=== PATIENT | female | born 1940 | race Caucasian/White ===

== ENCOUNTER → 2016-05-29 | Outpatient (CLI) | payer OTHER ==
[~2016-05-29] MED LIST: ASPI81TA27 PO; ATEN50TA PO; CLOP75TA41 PO; LOSA25TA9 PO; OMEP20CA5 PO; SERT25TA84 OR; SIMV-8 PO
[2016-05-29 09:04] LABS: Cholesterol 169 mg/dL (<200); HDL Cholesterol 45 mg/dL (40-59); LDL Cholesterol 89 mg/dL (<100); Triglycerides 237 mg/dL (<150)
== END | disposition home or self-care (01) ==
LOC: LAB 08:28
PROVIDERS: ATTEND Family Medicine
DX: I10 Essential (primary) hypertension (principal); R73.03 Prediabetes
CPT/HCPCS: 36415; 80061; 83036

== ENCOUNTER 2016-06-09 15:27 | Emergency (ER) | payer OTHER ==
[~2016-06-09] VITALS: Ht 154.9 cm; Wt 70.8 kg
[2016-06-09] MEDS ORDERED: ACETAMINOPHEN 325 MG TAB PO ONE (17:45)
[2016-06-09 17:46] LABS: Basophils # (auto) 0.1 uL; Basophils % (auto) 0.5 % (0.0-2.0); Eosinophils # (auto) 0 uL; Hematocrit 38.5 % (36.0-46.0); Hemoglobin 12.1 g/dL (12.2-16.2); Lymphocytes # (auto) 0.4 uL; Lymphocytes % (auto) 3.1 % (10.0-50.0); Mean Corpuscular Hemoglobin 28.1 pg (28.0-32.0); Mean Corpuscular Hgb Conc. 31.5 g/dL (32.0-36.0); Mean Corpuscular Volume 89.2 fL (80.0-100.0); Mean Platelet Volume 10.1 fL (7.4-10.4); Monocytes # (auto) 0.9 uL; Monocytes % (auto) 6.3 % (0.0-12.0); Neutrophils # (auto) 12.5 uL; Neutrophils % (auto) 90.1 % (37.0-80.0); Platelet Count (auto) 333 10^3/uL (140-450); Red Cell Distribution Width 15.3 % (11.6-16.0); White Blood Cell 13.8 10^3/uL (4.4-10.8)
[2016-06-09 19:11] LABS: Albumin 2.5 g/dL (3.4-5.0); Anion Gap 10 (5-15); Aspartate Aminotransferase 14 U/L (15-37); BUN/Creatinine Ratio 20.2; Blood Urea Nitrogen 17 mg/dL (7-18); Calcium 8.9 mg/dL (8.5-10.1); Carbon Dioxide 28 mmol/L (21-32); Chloride 100 mmol/L (98-107); GFR African American 85 mL/min; GFR Non-African American 70 mL/min; Glucose 220 mg/dL (74-106); Potassium 3.6 mmol/L (3.5-5.1); Sodium 138 mmol/L (136-145)
[2016-06-09 19:16] LABS: Alkaline Phosphatase 87 U/L (45-117); Bilirubin, Total 0.7 mg/dL (0.2-1.0); Total Protein 7.6 g/dL (6.4-8.2)
[2016-06-09] MEDS ORDERED: LIDOCAINE W/ EPINEPHRINE 1% 20ML VIAL ONE (20:16)
[2016-06-09] MEDS ORDERED: LIDOCAINE 1% HCL (LOCAL ANESTH.) INJ 20ML MDV ONE (20:20)
[2016-06-09 20:30] VITALS: BP 137/87
[2016-06-09] MEDS ORDERED: OXYCODONE W/ ACETAMINOPHEN 5/325MG TABLET ONE (20:49)
[2016-06-09] MEDS ORDERED: OXYCODONE W/ ACETAMINOPHEN 5/325MG TABLET PO ONE (21:00)
[2016-06-09] MEDS ORDERED: cefTRIAXone SOD 1,000 MG VL IM ONE (21:00)
== END 2016-06-09 21:30 | disposition home or self-care (01) ==
LOC: ER 15:27
DX: S52.502A Unspecified fracture of the lower end of left radius, initial encounter for closed fracture (principal); S01.81XA Laceration without foreign body of other part of head, initial encounter; K21.9 Gastro-esophageal reflux disease without esophagitis; I25.10 Atherosclerotic heart disease of native coronary artery without angina pectoris; I10 Essential (primary) hypertension; E78.5 Hyperlipidemia, unspecified; I25.2 Old myocardial infarction; R51 Headache; W07.XXXA Fall from chair, initial encounter; Y93.89 Activity, other specified; Y99.8 Other external cause status; Y92.098 Other place in other non-institutional residence as the place of occurrence of the external cause; Z88.1 Allergy status to other antibiotic agents; Z88.6 Allergy status to analgesic agent; Z79.82 Long term (current) use of aspirin
CPT/HCPCS: 12013; 29125; 36415; 70450; 70486; 72125; 73090; 73562; 80053; 84484; 85025; 96372; J2001

== ENCOUNTER → 2016-06-17 | Outpatient (CLI) | payer OTHER ==
[2016-06-17 09:05] LABS: Basophils # (auto) 0 uL; Basophils % (auto) 0.8 % (0.0-2.0); Eosinophils # (auto) 0.2 uL; Eosinophils % (auto) 3.1 % (0.0-7.0); Hematocrit 45.9 % (36.0-46.0); Hemoglobin 15.5 g/dL (12.2-16.2); Lymphocytes # (auto) 1.9 uL; Mean Corpuscular Hgb Conc. 33.7 g/dL (32.0-36.0); Mean Corpuscular Volume 92.1 fL (80.0-100.0); Mean Platelet Volume 7.7 fL (7.4-10.4); Monocytes # (auto) 0.6 uL; Monocytes % (auto) 10.5 % (0.0-12.0); Neutrophils # (auto) 3.2 uL; Neutrophils % (auto) 53.6 % (37.0-80.0); Platelet Count (auto) 338 10^3/uL (140-450); Red Cell Distribution Width 13.6 % (11.6-16.0)
[2016-06-17 09:11] LABS: Urine Bilirubin Negative (Negative); Urine Blood Negative /uL (Negative); Urine Color Yellow (Yellow); Urine Glucose Normal (Normal); Urine Ketone Negative (Negative); Urine Mucus FEW (None Seen); Urine Nitrite Negative (Negative); Urine RBC 3 /hpf (0 - 4); Urine Squamous Epithelial Cell MOD /hpf (<5); Urine pH 5.5 (5.0-8.0)
[2016-06-17 09:34] LABS: Albumin 3.6 g/dL (3.4-5.0); BUN/Creatinine Ratio 21.2; Bilirubin, Total 0.5 mg/dL (0.2-1.0); Calcium 8.8 mg/dL (8.5-10.1); Potassium 3.6 mmol/L (3.5-5.1); Total Protein 7.8 g/dL (6.4-8.2)
[2016-06-17 09:49] LABS: INR 0.97 (0.9-1.15); Partial Thromboplastin Time 24.5 sec (22.64-33.71); Prothrombin Time 10.5 sec (9.37-12.3)
== END | disposition home or self-care (01) ==
LOC: LAB 08:18
PROVIDERS: ATTEND Orthopaedic Surgery
DX: Z79.01 Long term (current) use of anticoagulants (principal); S52.532A Colles' fracture of left radius, initial encounter for closed fracture
CPT/HCPCS: 36415; 80053; 81001; 85025; 85610; 85730

== ENCOUNTER → 2017-01-01 | Outpatient (CLI) | payer OTHER ==
[~2017-01-01] MED LIST changes: -OMEP20CA5 PO; +OMEP20CA74 PO
[2017-01-01 08:37] LABS: Basophils # (auto) 0.1 uL; Eosinophils # (auto) 0.1 uL; Eosinophils % (auto) 2.3 % (0.0-7.0); Hematocrit 45.4 % (36.0-46.0); Hemoglobin 15.3 g/dL (12.2-16.2); Lymphocytes # (auto) 2.1 uL; Lymphocytes % (auto) 35.3 % (10.0-50.0); Mean Corpuscular Hemoglobin 31.4 pg (28.0-32.0); Mean Corpuscular Hgb Conc. 33.6 g/dL (32.0-36.0); Mean Corpuscular Volume 93.5 fL (80.0-100.0); Monocytes # (auto) 0.6 uL; Monocytes % (auto) 10.9 % (0.0-12.0); Neutrophils # (auto) 2.9 uL; Neutrophils % (auto) 50.5 % (37.0-80.0); Nucleated Red Blood Cells % 0.1 %; Platelet Count (auto) 275 10^3/uL (140-450); Red Cell Distribution Width 13.5 % (11.8-14.3); White Blood Cell 5.8 10^3/uL (4.4-10.8)
[2017-01-01 08:47] LABS: Urine Bilirubin Negative (Negative); Urine Blood Negative /uL (Negative); Urine Color PINK (Yellow); Urine Glucose Normal (Normal); Urine Ketone Negative (Negative); Urine Mucus FEW (None Seen); Urine Nitrite Negative (Negative); Urine RBC 2 /hpf (0 - 4); Urine Squamous Epithelial Cell MOD /hpf (<5); Urine Urobilinogen Normal (Negative); Urine pH 5.5 (5.0-8.0)
[2017-01-01 09:04] LABS: Albumin 3.8 g/dL (3.4-5.0); BUN/Creatinine Ratio 29.7; Bilirubin, Total 0.5 mg/dL (0.2-1.0); Potassium 3.4 mmol/L (3.5-5.1); Total Protein 7.5 g/dL (6.4-8.2)
[2017-01-01 09:21] LABS: Temperature: 24.3 C (20.0-25.0)
== END | disposition home or self-care (01) ==
LOC: LAB 08:18
PROVIDERS: ATTEND Family Medicine
DX: E11.22 Type 2 diabetes mellitus with diabetic chronic kidney disease (principal); E78.2 Mixed hyperlipidemia; Z79.899 Other long term (current) drug therapy
CPT/HCPCS: 36415; 80053; 80061; 81001; 82306; 82607; 82746; 83036; 84443; 85025

== ENCOUNTER → 2017-07-09 | Outpatient (CLI) | payer OTHER | END | disposition home or self-care (01) | LOC: LAB 07:12 | PROVIDERS: ATTEND Family Medicine | DX: I10 Essential (primary) hypertension (principal); E11.9 Type 2 diabetes mellitus without complications; E78.5 Hyperlipidemia, unspecified; Z79.899 Other long term (current) drug therapy; Z79.82 Long term (current) use of aspirin | CPT/HCPCS: 36415; 82043; 83036 ==

== ENCOUNTER → 2017-10-21 | Outpatient (CLI) | payer OTHER ==
[2017-10-21 09:34] LABS: Basophils # (auto) 0 uL; Eosinophils # (auto) 0.2 uL; Hematocrit 44.3 % (36.0-46.0); Hemoglobin 15.2 g/dL (12.2-16.2); Lymphocytes # (auto) 1.5 uL; Lymphocytes % (auto) 31.1 % (10.0-50.0); Mean Corpuscular Hemoglobin 32.1 pg (28.0-32.0); Mean Corpuscular Hgb Conc. 34.4 g/dL (32.0-36.0); Mean Corpuscular Volume 93.5 fL (80.0-100.0); Monocytes # (auto) 0.5 uL; Monocytes % (auto) 9.7 % (0.0-12.0); Neutrophils # (auto) 2.7 uL; Neutrophils % (auto) 54.2 % (37.0-80.0); Nucleated Red Blood Cells % 0.1 %; Platelet Count (auto) 233 10^3/uL (140-450); Red Blood Cells 4.74 10^6/uL (4.0-5.20); Red Cell Distribution Width 13.6 % (11.8-14.3); White Blood Cell 4.9 10^3/uL (4.4-10.8)
[2017-10-21 09:48] LABS: Urine Bacteria FEW /hpf (None Seen); Urine Blood Negative /uL (Negative); Urine Mucus FEW (None Seen); Urine Specific Gravity 1.021 (1.001-1.035); Urine WBC 9 /hpf (0 - 5)
[2017-10-21 10:13] LABS: Albumin 3.6 g/dL (3.4-5.0); BUN/Creatinine Ratio 21.9; Bilirubin, Total 0.6 mg/dL (0.2-1.0); Calcium 8.9 mg/dL (8.5-10.1); Total Protein 7.2 g/dL (6.4-8.2)
== END | disposition home or self-care (01) ==
LOC: LAB 09:15
PROVIDERS: ATTEND Family Medicine
DX: E11.8 Type 2 diabetes mellitus with unspecified complications (principal); Z90.710 Acquired absence of both cervix and uterus; Z88.6 Allergy status to analgesic agent; Z88.8 Allergy status to other drugs, medicaments and biological substances; Z88.1 Allergy status to other antibiotic agents
CPT/HCPCS: 36415; 80053; 80061; 81001; 82043; 82306; 85025

== ENCOUNTER → 2018-03-16 | Outpatient (CLI) | payer OTHER, MEDICARE ==
[~2018-03-16] MED LIST changes: +LOSA25TA40 PO; -LOSA25TA9 PO
[2018-03-16 10:39] LABS: Basophils # (auto) 0 uL; Basophils % (auto) 0.8 % (0.0-2.0); Eosinophils # (auto) 0.1 uL; Eosinophils % (auto) 1.8 % (0.0-7.0); Hematocrit 45.6 % (36.0-46.0); Hemoglobin 15.4 g/dL (12.2-16.2); Lymphocytes # (auto) 1.1 uL; Lymphocytes % (auto) 26.3 % (10.0-50.0); Mean Corpuscular Hemoglobin 31.7 pg (28.0-32.0); Mean Corpuscular Hgb Conc. 33.9 g/dL (32.0-36.0); Mean Corpuscular Volume 93.7 fL (80.0-100.0); Monocytes # (auto) 0.4 uL; Monocytes % (auto) 9.1 % (0.0-12.0); Neutrophils # (auto) 2.7 uL; Nucleated Red Blood Cells % 0.1 %; Platelet Count (auto) 247 10^3/uL (140-450); Red Blood Cells 4.87 10^6/uL (4.0-5.20); Red Cell Distribution Width 13.3 % (11.8-14.3); White Blood Cell 4.3 10^3/uL (4.4-10.8)
[2018-03-16 10:47] LABS: Urine Bacteria FEW /hpf (None Seen); Urine Blood Negative /uL (Negative); Urine Mucus FEW (None Seen); Urine Specific Gravity 1.025 (1.001-1.035); Urine WBC 2 /hpf (0 - 5)
[2018-03-16 10:52] LABS: Potassium 4.1 mmol/L (3.5-5.1)
[2018-03-16 11:03] LABS: Albumin 3.5 g/dL (3.4-5.0); BUN/Creatinine Ratio 24.2; Bilirubin, Total 0.6 mg/dL (0.2-1.0); Calcium 9.1 mg/dL (8.5-10.1); Total Protein 7.2 g/dL (6.4-8.2)
== END | disposition home or self-care (01) ==
LOC: LAB 09:21
PROVIDERS: ATTEND Nurse Practitioner
DX: E11.29 Type 2 diabetes mellitus with other diabetic kidney complication (principal); E78.00 Pure hypercholesterolemia, unspecified; K21.9 Gastro-esophageal reflux disease without esophagitis; Z79.899 Other long term (current) drug therapy
CPT/HCPCS: 36415; 80053; 80061; 81001; 82043; 82306; 83036; 85025

== ENCOUNTER → 2018-06-15 | Outpatient (CLI) | payer OTHER, MEDICARE ==
[2018-06-15 10:31] LABS: Basophils # (auto) 0 uL; Basophils % (auto) 0.2 % (0.0-2.0); Eosinophils # (auto) 0.1 uL; Eosinophils % (auto) 2.6 % (0.0-7.0); Hematocrit 42.9 % (36.0-46.0); Hemoglobin 14.4 g/dL (12.2-16.2); Lymphocytes % (auto) 27.1 % (10.0-50.0); Mean Corpuscular Hemoglobin 31.4 pg (28.0-32.0); Mean Corpuscular Hgb Conc. 33.7 g/dL (32.0-36.0); Mean Corpuscular Volume 93.3 fL (80.0-100.0); Monocytes # (auto) 0.3 uL; Monocytes % (auto) 9.6 % (0.0-12.0); Neutrophils # (auto) 2.2 uL; Neutrophils % (auto) 60.5 % (37.0-80.0); Nucleated Red Blood Cells % 0.1 %; Platelet Count (auto) 235 10^3/uL (140-450); Red Cell Distribution Width 13.7 % (11.8-14.3); White Blood Cell 3.6 10^3/uL (4.4-10.8)
[2018-06-15 10:36] LABS: Calcium 8.6 mg/dL (8.5-10.1); Potassium 3.4 mmol/L (3.5-5.1)
[2018-06-15 10:45] LABS: Albumin 3.7 g/dL (3.4-5.0); BUN/Creatinine Ratio 25.3; Bilirubin, Total 0.7 mg/dL (0.2-1.0)
[2018-06-15 10:53] LABS: Urine Bacteria NONE SEEN /hpf (None Seen); Urine Blood Negative /uL (Negative); Urine Specific Gravity 1.022 (1.001-1.035); Urine WBC 6 /hpf (0 - 5)
[2018-06-15 10:59] LABS: Folate (Folic Acid) 20.88 ng/mL (5.38-24)
== END | disposition home or self-care (01) ==
LOC: LAB 08:40
PROVIDERS: ATTEND Nurse Practitioner
DX: E78.5 Hyperlipidemia, unspecified (principal); E11.29 Type 2 diabetes mellitus with other diabetic kidney complication
CPT/HCPCS: 36415; 80053; 80061; 81001; 82043; 82607; 82746; 83036; 84443; 84550; 85025

== ENCOUNTER → 2018-10-19 | Outpatient (CLI) | payer MEDICARE, OTHER ==
[~2018-10-19] MED LIST changes: +ASPI-404 PO; -ASPI81TA27 PO; +LOSA25TA38 PO; -LOSA25TA40 PO
[2018-10-19 10:30] LABS: Basophils # (auto) 0 uL; Eosinophils # (auto) 0.2 uL; Eosinophils % (auto) 4.6 % (0.0-7.0); Hematocrit 42.9 % (36.0-46.0); Hemoglobin 14.4 g/dL (12.2-16.2); Lymphocytes # (auto) 1.1 uL; Lymphocytes % (auto) 26.9 % (10.0-50.0); Mean Corpuscular Hemoglobin 31.2 pg (28.0-32.0); Mean Corpuscular Hgb Conc. 33.6 g/dL (32.0-36.0); Monocytes # (auto) 0.4 uL; Monocytes % (auto) 9.6 % (0.0-12.0); Neutrophils # (auto) 2.3 uL; Neutrophils % (auto) 57.9 % (37.0-80.0); Platelet Count (auto) 259 10^3/uL (140-450); Red Blood Cells 4.62 10^6/uL (4.0-5.20); Red Cell Distribution Width 13.5 % (11.8-14.3)
[2018-10-19 10:52] LABS: Urine Bacteria NONE SEEN /hpf (None Seen); Urine Blood Negative /uL (Negative); Urine Specific Gravity 1.025 (1.001-1.035); Urine WBC 30 /hpf (0 - 5)
[2018-10-19 11:09] LABS: Albumin 3.5 g/dL (3.4-5.0); BUN/Creatinine Ratio 21.9; Bilirubin, Total 0.6 mg/dL (0.2-1.0); Total Protein 7.2 g/dL (6.4-8.2)
== END | disposition home or self-care (01) ==
LOC: LAB 09:58
PROVIDERS: ATTEND Nurse Practitioner
DX: E78.5 Hyperlipidemia, unspecified (principal); E11.9 Type 2 diabetes mellitus without complications
CPT/HCPCS: 36415; 80053; 80061; 81001; 82306; 83036; 84443; 85025

== ENCOUNTER → 2018-10-27 | Outpatient (CLI) | payer OTHER | END | disposition home or self-care (01) | LOC: LAB 16:27 | PROVIDERS: ATTEND Nurse Practitioner | DX: E78.5 Hyperlipidemia, unspecified (principal); E11.9 Type 2 diabetes mellitus without complications | CPT/HCPCS: 82270 ==

== ENCOUNTER → 2019-04-29 | Outpatient (CLI) | payer OTHER ==
[2019-04-29 10:08] LABS: Basophils # (auto) 0 uL; Eosinophils # (auto) 0.1 uL; Eosinophils % (auto) 2.8 % (0.0-7.0); Hematocrit 40.4 % (36.0-46.0); Hemoglobin 13.8 g/dL (12.2-16.2); Lymphocytes # (auto) 1.2 uL; Lymphocytes % (auto) 30.7 % (10.0-50.0); Mean Corpuscular Hgb Conc. 34.3 g/dL (32.0-36.0); Mean Corpuscular Volume 93.3 fL (80.0-100.0); Monocytes # (auto) 0.4 uL; Monocytes % (auto) 10.4 % (0.0-12.0); Neutrophils # (auto) 2.2 uL; Neutrophils % (auto) 55.1 % (37.0-80.0); Nucleated Red Blood Cells % 0.1 %; Platelet Count (auto) 251 10^3/uL (140-450); Red Blood Cells 4.33 10^6/uL (4.0-5.20); Red Cell Distribution Width 13.6 % (11.8-14.3)
[2019-04-29 10:15] LABS: Urine Bacteria NONE SEEN /hpf (None Seen); Urine Blood Negative /uL (Negative); Urine Mucus FEW (None Seen); Urine Specific Gravity 1.028 (1.001-1.035); Urine WBC 48 /hpf (0 - 5)
[2019-04-29 10:39] LABS: Albumin 3.2 g/dL (3.4-5.0); Potassium 3.9 mmol/L (3.5-5.1)
[2019-04-29 10:45] LABS: BUN/Creatinine Ratio 25.8; Bilirubin, Total 0.5 mg/dL (0.2-1.0); Calcium 8.8 mg/dL (8.5-10.1); Total Protein 6.7 g/dL (6.4-8.2)
== END | disposition home or self-care (01) ==
LOC: LAB 09:32
PROVIDERS: ATTEND Nurse Practitioner
DX: E78.5 Hyperlipidemia, unspecified (principal); E11.22 Type 2 diabetes mellitus with diabetic chronic kidney disease; N18.3 Chronic kidney disease, stage 3 (moderate)
CPT/HCPCS: 36415; 80053; 80061; 81001; 82043; 83036; 84443; 85025

== ENCOUNTER 2019-11-29 08:50 | Day surgery (SDC) | payer OTHER ==
[2019-11-24 12:23] LABS: Basophils # (auto) 0 10 ^3/uL (0-0.2); Basophils % (auto) 0.9 % (0.0-2.0); Eosinophils # (auto) 0.1 10 ^3/uL (0-0.8); Eosinophils % (auto) 2.6 % (0.0-7.0); Hematocrit 41.6 % (36.0-46.0); Hemoglobin 13.8 g/dL (12.2-16.2); Lymphocytes # (auto) 1.5 10 ^3/uL (0.4-5.4); Lymphocytes % (auto) 30.9 % (10.0-50.0); Mean Corpuscular Hemoglobin 30.9 pg (28.0-32.0); Mean Corpuscular Hgb Conc. 33.2 g/dL (32.0-36.0); Mean Corpuscular Volume 93.2 fL (80.0-100.0); Monocytes # (auto) 0.5 10 ^3/uL (0-1.3); Monocytes % (auto) 9.7 % (0.0-12.0); Neutrophils # (auto) 2.7 10 ^3/uL (1.6-8.6); Neutrophils % (auto) 55.9 % (37.0-80.0); Platelet Count (auto) 278 10^3/uL (140-450); Red Blood Cells 4.47 10^6/uL (4.0-5.20); Red Cell Distribution Width 13.1 % (11.8-14.3); White Blood Cell 4.9 10^3/uL (4.4-10.8)
[2019-11-24 12:44] LABS: INR 0.97 (0.9-1.15); Partial Thromboplastin Time 24.7 sec (23.0-31.2)
[~2019-11-29] VITALS: Ht 152.4 cm; Wt 67.1 kg
[~2019-11-29 08:50] MED LIST changes: -ASPI-404 PO; +ASPI-543 PO; +FLUMAZENIL 0.1 MG/ML INJ 10ML MDV IV ONE; +FURO20TA3 PO; +HYDR12.56 PO; +LIDOCAINE VISCOUS 2% 15ML UD ONE; -LOSA25TA38 PO; +METF-370 PO; +NALOXONE HCL 0.4 MG/ML VIAL ONE; -SERT25TA84 OR; +SODIUM CHLORIDE LOCK 10 ML ONE; +diphenhdrAMINE HCL 50 MG/1 ML VL ONE
[2019-11-29] MEDS: fentaNYL CITRATE 100 MCG/2 ML VL ONE ×2 (09:50→09:52)
[2019-11-29] MEDS: MIDAZOLAM HCL 5 MG/ML-1ML VIAL ONE ×2 (09:50→09:52)
[2019-11-29 10:50] VITALS: BP 116/60
== END 2019-11-29 11:05 | disposition home or self-care (01) ==
LOC: SUR 08:50
PROVIDERS: ATTEND Internal Medicine Gastroenterology
DX: K21.9 Gastro-esophageal reflux disease without esophagitis (principal); K29.50 Unspecified chronic gastritis without bleeding; K44.9 Diaphragmatic hernia without obstruction or gangrene; K31.89 Other diseases of stomach and duodenum; E11.9 Type 2 diabetes mellitus without complications; E66.9 Obesity, unspecified; F32.9 Major depressive disorder, single episode, unspecified; Z79.899 Other long term (current) drug therapy; Z79.84 Long term (current) use of oral hypoglycemic drugs; Z68.28 Body mass index [BMI] 28.0-28.9, adult; Z20.828 Contact with and (suspected) exposure to other viral communicable diseases; Z88.1 Allergy status to other antibiotic agents; Z88.8 Allergy status to other drugs, medicaments and biological substances; Z90.710 Acquired absence of both cervix and uterus; Z87.891 Personal history of nicotine dependence
CPT/HCPCS: 36415; 43239; 82962; 85025; 85610; 85730; 88305; 88342; J2250; J2310; J3010; J7030; U0003

== ENCOUNTER → 2020-01-20 | Day surgery (SDC) | payer OTHER ==
[2020-01-16 12:29] LABS: Basophils # (auto) 0 10 ^3/uL (0-0.2); Basophils % (auto) 0.9 % (0.0-2.0); Eosinophils # (auto) 0.1 10 ^3/uL (0-0.8); Eosinophils % (auto) 2.5 % (0.0-7.0); Hematocrit 43.6 % (36.0-46.0); Hemoglobin 14.7 g/dL (12.2-16.2); Lymphocytes # (auto) 1.4 10 ^3/uL (0.4-5.4); Lymphocytes % (auto) 25.3 % (10.0-50.0); Mean Corpuscular Hemoglobin 31.5 pg (28.0-32.0); Mean Corpuscular Hgb Conc. 33.8 g/dL (32.0-36.0); Mean Corpuscular Volume 93.2 fL (80.0-100.0); Monocytes # (auto) 0.5 10 ^3/uL (0-1.3); Monocytes % (auto) 8.5 % (0.0-12.0); Neutrophils # (auto) 3.5 10 ^3/uL (1.6-8.6); Neutrophils % (auto) 62.8 % (37.0-80.0); Nucleated Red Blood Cells % 0.1 %; Platelet Count (auto) 276 10^3/uL (140-450); Red Blood Cells 4.68 10^6/uL (4.0-5.20); Red Cell Distribution Width 13.6 % (11.8-14.3); White Blood Cell 5.6 10^3/uL (4.4-10.8)
[2020-01-16 12:35] LABS: Urine Bacteria NONE SEEN /hpf (None Seen); Urine Blood Negative /uL (Negative); Urine Hyaline Cast FEW /lpf (0 - 2); Urine Mucus FEW (None Seen); Urine Specific Gravity 1.017 (1.001-1.035); Urine WBC 10 /hpf (0 - 5)
[2020-01-16 12:43] LABS: INR 0.98 (0.9-1.15); Partial Thromboplastin Time 24.2 sec (23.0-31.2)
[2020-01-16 13:41] LABS: Albumin 3.5 g/dL (3.4-5.0); Calcium 9.1 mg/dL (8.5-10.1); Potassium 3.7 mmol/L (3.5-5.1)
[2020-01-16 13:45] LABS: BUN/Creatinine Ratio 19.2; Bilirubin, Total 0.6 mg/dL (0.2-1.0); Total Protein 7.3 g/dL (6.4-8.2)
[~2020-01-20] VITALS: Ht 152.4 cm; Wt 66.2 kg
[~2020-01-20] MED LIST changes: +ACCU-CHEK COMFORT CURVE STRIP VI ONE; -FLUMAZENIL 0.1 MG/ML INJ 10ML MDV IV ONE; +HYDROmorphone HCL 2 MG/ML VL IV PRN; +LIDOCAINE 2% (LOCAL ANESTH.) PF 5ml SDV ONE; -LIDOCAINE VISCOUS 2% 15ML UD ONE; +MIDAZOLAM HCL 1MG/1ML-2 ML VIAL ONE; +NALOXONE HCL 0.4 MG/ML VIAL IV PRN; -NALOXONE HCL 0.4 MG/ML VIAL ONE; +ONDANSETRON HCL 4 MG/2 ML VIAL IV PRN; +PROPOFOL 10 MG/ML 20 ML IV ONE; -SODIUM CHLORIDE LOCK 10 ML ONE; +fentaNYL CITRATE 100 MCG/2 ML VL ONE
[2020-01-20 12:35] VITALS: BP 133/69
== END | disposition home or self-care (01) ==
LOC: GI 10:48
PROVIDERS: ATTEND Internal Medicine Gastroenterology
DX: R19.4 Change in bowel habit (principal); K57.30 Diverticulosis of large intestine without perforation or abscess without bleeding; K52.9 Noninfective gastroenteritis and colitis, unspecified; K64.8 Other hemorrhoids; I10 Essential (primary) hypertension; I25.10 Atherosclerotic heart disease of native coronary artery without angina pectoris; E66.01 Morbid (severe) obesity due to excess calories; K21.9 Gastro-esophageal reflux disease without esophagitis; E11.36 Type 2 diabetes mellitus with diabetic cataract; I25.2 Old myocardial infarction; K44.9 Diaphragmatic hernia without obstruction or gangrene; F32.9 Major depressive disorder, single episode, unspecified; Z90.710 Acquired absence of both cervix and uterus; Z20.828 Contact with and (suspected) exposure to other viral communicable diseases; Z98.890 Other specified postprocedural states; Z79.899 Other long term (current) drug therapy; Z68.31 Body mass index [BMI] 31.0-31.9, adult; Z79.82 Long term (current) use of aspirin; Z88.8 Allergy status to other drugs, medicaments and biological substances; Z88.1 Allergy status to other antibiotic agents; Z87.891 Personal history of nicotine dependence; Z95.5 Presence of coronary angioplasty implant and graft; M19.90 Unspecified osteoarthritis, unspecified site
CPT/HCPCS: 36415; 45380; 80053; 81001; 82962; 85025; 85610; 85730; J1200; J2001; J2250; J2704; J3010; J7030; U0003

== ENCOUNTER 2020-06-14 14:45 | Inpatient (IN) | payer MEDICARE, OTHER ==
[~2020-06-14] VITALS: Ht 154.9 cm; Wt 65.9 kg
[~2020-06-14 14:45] MED LIST changes: -ACCU-CHEK COMFORT CURVE STRIP VI ONE; -CLOP75TA41 PO; +CLOP75TA70 PO; -HYDROmorphone HCL 2 MG/ML VL IV PRN; -LIDOCAINE 2% (LOCAL ANESTH.) PF 5ml SDV ONE; -MIDAZOLAM HCL 1MG/1ML-2 ML VIAL ONE; -NALOXONE HCL 0.4 MG/ML VIAL IV PRN; -ONDANSETRON HCL 4 MG/2 ML VIAL IV PRN; -PROPOFOL 10 MG/ML 20 ML IV ONE; -diphenhdrAMINE HCL 50 MG/1 ML VL ONE; -fentaNYL CITRATE 100 MCG/2 ML VL ONE
[2020-06-14 15:35] LABS: Basophils # (auto) 0 10 ^3/uL (0-0.2); Basophils % (auto) 1.1 % (0.0-2.0); Eosinophils # (auto) 0.1 10 ^3/uL (0-0.8); Eosinophils % (auto) 2.4 % (0.0-7.0); Hematocrit 40.4 % (36.0-46.0); Lymphocytes # (auto) 1.1 10 ^3/uL (0.4-5.4); Mean Corpuscular Hemoglobin 31.8 pg (28.0-32.0); Mean Corpuscular Hgb Conc. 34.7 g/dL (32.0-36.0); Mean Corpuscular Volume 91.6 fL (80.0-100.0); Monocytes # (auto) 0.4 10 ^3/uL (0-1.3); Monocytes % (auto) 9.2 % (0.0-12.0); Neutrophils # (auto) 2.7 10 ^3/uL (1.6-8.6); Neutrophils % (auto) 61.3 % (37.0-80.0); Nucleated Red Blood Cells % 0.1 %; Platelet Count (auto) 258 10^3/uL (140-450); Red Blood Cells 4.41 10^6/uL (4.0-5.20); Red Cell Distribution Width 13.3 % (11.8-14.3); White Blood Cell 4.4 10^3/uL (4.4-10.8)
[2020-06-14 15:53] LABS: Albumin 3.4 g/dL (3.4-5.0); Anion Gap 8 (5-15); BUN/Creatinine Ratio 18.7; Blood Urea Nitrogen 17 mg/dL (7-18); Calcium 8.8 mg/dL (8.5-10.1); Carbon Dioxide 30 mmol/L (21-32); Chloride 101 mmol/L (98-107); GFR African American 77 mL/min; GFR Non-African American 63 mL/min; Glucose 158 mg/dL (74-106); Potassium 3.6 mmol/L (3.5-5.1); Sodium 139 mmol/L (136-145)
[2020-06-14 15:58] LABS: Alanine Aminotransferase 53 U/L (13-56); Alkaline Phosphatase 145 U/L (45-117); Aspartate Aminotransferase 44 U/L (15-37); Bilirubin, Total 0.6 mg/dL (0.2-1.0); Total Protein 7.1 g/dL (6.4-8.2)
[2020-06-14 18:27] LABS: Urine Bacteria NONE SEEN /hpf (None Seen); Urine Blood Negative /uL (Negative); Urine Mucus FEW (None Seen); Urine Specific Gravity 1.026 (1.001-1.035); Urine WBC 19 /hpf (0 - 5)
[2020-06-14] MEDS ORDERED: hydrALAZINE HCL 20 MG/ML VL IV PRN (19:15)
[2020-06-14] MEDS ORDERED: DOCUSATE CALCIUM 240 MG CAP PO PRN (19:15)
[2020-06-14] MEDS ORDERED: DEXTROSE (50%) 50ML SYRG IV PRN (19:15)
[2020-06-14] MEDS ORDERED: SODIUM CHLORIDE 0.9% 250 ML IV ONE (19:15)
[2020-06-14] MEDS ORDERED: NITROGLYCERIN 0.4 MG SL TAB SL PRN (19:15)
[2020-06-14] MEDS ORDERED: ONDANSETRON HCL 4 MG/2 ML VIAL IV PRN (19:15)
[2020-06-14] MEDS ORDERED: LORazepam 0.5 MG TAB PO PRN (19:15)
[2020-06-14] MEDS ORDERED: ACETAMINOPHEN 500 MG TAB PO PRN (19:15)
[2020-06-14] MEDS ORDERED: MORPHINE SULF INJ 2 MG/ML SYRINGE 1ML IV PRN (19:15)
[2020-06-14] MEDS: InsuLIN REG 1unit/0.01ml Soln (100units/ml) SC SCH (20:00)
[2020-06-14] MEDS: ACCU-CHEK COMFORT CURVE STRIP VI SCH (20:12)
[2020-06-14] MEDS: MORPHINE SULF INJ 2 MG/ML SYRINGE 1ML IV PRN (20:12)
[2020-06-14] MEDS: SODIUM CHLORIDE 0.9% 1,000 ML IV SCH (20:58)
[2020-06-14] MEDS ORDERED: INSULIN LANTUS (GLARGINE) 1 /0.01ml (100units/ml) SC SCH (22:00)
[2020-06-14 22:50] VITALS: BP 99/61
[2020-06-15] MEDS: ACCU-CHEK COMFORT CURVE STRIP VI SCH ×4 (00:23→12:00)
[2020-06-15] MEDS: InsuLIN REG 1unit/0.01ml Soln (100units/ml) SC SCH ×4 (00:24→12:00)
[2020-06-15] MEDS: MORPHINE SULF INJ 2 MG/ML SYRINGE 1ML IV PRN (03:48)
[2020-06-15 05:00] VITALS: BP 93/61
[2020-06-15 07:04] LABS: Alanine Aminotransferase 42 U/L (13-56); Albumin 2.6 g/dL (3.4-5.0); Anion Gap 6 (5-15); Blood Urea Nitrogen 19 mg/dL (7-18); Calcium 8.1 mg/dL (8.5-10.1); Carbon Dioxide 27 mmol/L (21-32); Chloride 109 mmol/L (98-107); Glucose 100 mg/dL (74-106); Potassium 3.8 mmol/L (3.5-5.1); Sodium 142 mmol/L (136-145)
[2020-06-15 07:09] LABS: Alkaline Phosphatase 105 U/L (45-117); Aspartate Aminotransferase 34 U/L (15-37); BUN/Creatinine Ratio 22.1; Bilirubin, Total 0.4 mg/dL (0.2-1.0); GFR African American 82 mL/min; GFR Non-African American 68 mL/min; Total Protein 5.6 g/dL (6.4-8.2)
[2020-06-15 07:10] LABS: Basophils # (auto) 0 10 ^3/uL (0-0.2); Eosinophils # (auto) 0.1 10 ^3/uL (0-0.8); Eosinophils % (auto) 2.9 % (0.0-7.0); Hematocrit 34.3 % (36.0-46.0); Hemoglobin 11.8 g/dL (12.2-16.2); Lymphocytes # (auto) 1.2 10 ^3/uL (0.4-5.4); Lymphocytes % (auto) 28.7 % (10.0-50.0); Mean Corpuscular Hemoglobin 31.7 pg (28.0-32.0); Mean Corpuscular Hgb Conc. 34.4 g/dL (32.0-36.0); Mean Corpuscular Volume 92.2 fL (80.0-100.0); Monocytes # (auto) 0.4 10 ^3/uL (0-1.3); Monocytes % (auto) 10.3 % (0.0-12.0); Neutrophils # (auto) 2.4 10 ^3/uL (1.6-8.6); Neutrophils % (auto) 57.1 % (37.0-80.0); Nucleated Red Blood Cells % 0.1 %; Platelet Count (auto) 218 10^3/uL (140-450); Red Blood Cells 3.72 10^6/uL (4.0-5.20); Red Cell Distribution Width 13.1 % (11.8-14.3); White Blood Cell 4.1 10^3/uL (4.4-10.8)
[2020-06-15 07:22] LABS: INR 1.06 (0.9-1.15)
[2020-06-15 09:00] VITALS: BP_SYST 88; BP_SYST 97; BP_DIAS 54; BP_DIAS 58
[2020-06-15] MEDS ORDERED: cefTRIAXone 1GM/50ML D5W 50 ML IV SCH (09:00)
[2020-06-15] MEDS ORDERED: PANTOPRAZOLE 40 MG TAB PO SCH (10:00)
[2020-06-15] MEDS ORDERED: ENOXAPARIN SOD 40 MG/0.4 ML SYRINGE SC SCH (10:00)
[2020-06-15] MEDS: SODIUM CHLORIDE 0.9% 1,000 ML IV SCH (11:55)
[2020-06-15 13:00] VITALS: BP 88/54
[2020-06-15] MEDS ORDERED: IODIXANOL 320MG/ML 100ML BTL IV ONE (16:00)
[2020-06-15 17:00] VITALS: BP 102/62
[2020-06-16 08:06] LABS: Immunoglobulin G, Serum 705 mg/dL (586-1602)
== END 2020-06-15 18:10 | disposition home or self-care (01) | DRG 841 ==
LOC: ER 14:45 → TELE 19:13 → TELE-WESTW 22:40
PROVIDERS: ADMIT Family Medicine; ATTEND Internal Medicine
DX: C90.00 Multiple myeloma not having achieved remission (principal); N39.0 Urinary tract infection, site not specified; E11.65 Type 2 diabetes mellitus with hyperglycemia; I25.10 Atherosclerotic heart disease of native coronary artery without angina pectoris; E78.5 Hyperlipidemia, unspecified; I12.9 Hypertensive chronic kidney disease with stage 1 through stage 4 chronic kidney disease, or unspecified chronic kidney disease; E11.22 Type 2 diabetes mellitus with diabetic chronic kidney disease; N18.2 Chronic kidney disease, stage 2 (mild); Z79.02 Long term (current) use of antithrombotics/antiplatelets; Z82.49 Family history of ischemic heart disease and other diseases of the circulatory system; Z82.5 Family history of asthma and other chronic lower respiratory diseases; Z83.3 Family history of diabetes mellitus; Z90.710 Acquired absence of both cervix and uterus; Z95.5 Presence of coronary angioplasty implant and graft; Z96.641 Presence of right artificial hip joint; K21.9 Gastro-esophageal reflux disease without esophagitis; F32.9 Major depressive disorder, single episode, unspecified; Z88.8 Allergy status to other drugs, medicaments and biological substances; Z88.1 Allergy status to other antibiotic agents; Z20.822 Contact with and (suspected) exposure to COVID-19; I25.2 Old myocardial infarction; M54.5 Low back pain
CPT/HCPCS: 36415; 71045; 71111; 71260; 72192; 78306; 80053; 81001; 82232; 82784; 82962; 83036; 83615; 83880; 84443; 84484; 85025; 85610; 86334; 87426; 93005; 96361; 96374; 96375; G0378; J0696; J1815; J2405; Q9967

== ENCOUNTER → 2020-09-14 | Outpatient (CLI) | payer OTHER ==
[2020-09-14 14:18] LABS: Basophils # (auto) 0.1 10 ^3/uL (0-0.2); Basophils % (auto) 0.7 % (0.0-2.0); Eosinophils # (auto) 0.1 10 ^3/uL (0-0.8); Eosinophils % (auto) 0.9 % (0.0-7.0); Hematocrit 37.3 % (36.0-46.0); Hemoglobin 12.7 g/dL (12.2-16.2); Lymphocytes # (auto) 1.4 10 ^3/uL (0.4-5.4); Lymphocytes % (auto) 16.2 % (10.0-50.0); Mean Corpuscular Hemoglobin 31.2 pg (28.0-32.0); Mean Corpuscular Hgb Conc. 33.9 g/dL (32.0-36.0); Mean Corpuscular Volume 92.1 fL (80.0-100.0); Monocytes # (auto) 0.7 10 ^3/uL (0-1.3); Monocytes % (auto) 8.5 % (0.0-12.0); Neutrophils # (auto) 6.4 10 ^3/uL (1.6-8.6); Neutrophils % (auto) 73.7 % (37.0-80.0); Platelet Count (auto) 308 10^3/uL (140-450); Red Blood Cells 4.05 10^6/uL (4.0-5.20); Red Cell Distribution Width 14.7 % (11.8-14.3); White Blood Cell 8.7 10^3/uL (4.4-10.8)
[2020-09-14 14:56] LABS: Albumin 3.1 g/dL (3.4-5.0); Calcium 8.8 mg/dL (8.5-10.1)
[2020-09-14 14:59] LABS: Bilirubin, Total 0.4 mg/dL (0.2-1.0); Total Protein 7.1 g/dL (6.4-8.2)
[2020-09-14 15:07] LABS: Thyroid Stimulating Hormone 3.9 uIU/mL (0.358-3.74)
== END | disposition home or self-care (01) ==
LOC: LAB 13:43
PROVIDERS: ATTEND Internal Medicine
DX: C34.11 Malignant neoplasm of upper lobe, right bronchus or lung (principal); C79.51 Secondary malignant neoplasm of bone
CPT/HCPCS: 36415; 80053; 83615; 84436; 84443; 85025; 85049

== ENCOUNTER → 2020-09-25 | Outpatient (CLI) | payer OTHER ==
[2020-09-25 10:04] LABS: Basophils # (auto) 0 10 ^3/uL (0-0.2); Eosinophils # (auto) 0 10 ^3/uL (0-0.8); Lymphocytes # (auto) 0.2 10 ^3/uL (0.4-5.4); Monocytes # (auto) 0.1 10 ^3/uL (0-1.3); Neutrophils # (auto) 0.1 10 ^3/uL (1.6-8.6); Red Cell Distribution Width 14.4 % (11.8-14.3)
[2020-09-25 10:05] LABS: Eosinophils % (auto) 1.1 % (0.0-7.0); Hematocrit 32.9 % (36.0-46.0); Mean Corpuscular Hemoglobin 30.7 pg (28.0-32.0); Mean Corpuscular Hgb Conc. 33.5 g/dL (32.0-36.0); Mean Corpuscular Volume 91.6 fL (80.0-100.0); Neutrophils % (auto) 20.5 % (37.0-80.0); Nucleated Red Blood Cells % 1.4 %; Red Blood Cells 3.59 10^6/uL (4.0-5.20)
[2020-09-25 10:12] LABS: Monocytes % (auto) 25.4 % (0.0-12.0)
[2020-09-25 10:17] LABS: White Blood Cell 0.5 10^3/uL (4.4-10.8)
[2020-09-25 10:40] LABS: Albumin 2.3 g/dL (3.4-5.0); Calcium 7.4 mg/dL (8.5-10.1); Potassium 4.7 mmol/L (3.5-5.1)
[2020-09-25 10:43] LABS: BUN/Creatinine Ratio 37.9; Bilirubin, Total 1.5 mg/dL (0.2-1.0); Total Protein 6.1 g/dL (6.4-8.2)
== END | disposition home or self-care (01) ==
LOC: LAB 09:49
PROVIDERS: ATTEND Internal Medicine
DX: C34.11 Malignant neoplasm of upper lobe, right bronchus or lung (principal); C79.51 Secondary malignant neoplasm of bone
CPT/HCPCS: 36415; 80053; 83615; 85025